=== PATIENT | male | born 1990 | race Caucasian/White ===

== ENCOUNTER 2022-03-31 23:14 | Emergency (ER) | payer MEDICAID, SELFPAY ==
[2022-03-31 23:15] VITALS: BP 139/92; PULSE 95; RESP 16; TEMP 36.3; O2SAT 99; BMI 22.1
--- NOTE | 2022-03-31 23:18 | RAD_ITS ---
STUDY: X-RAY - LEFT SHOULDER REASON FOR EXAM: Male, 31 years old. dislocation TECHNIQUE: 2 view(s) of the shoulder. COMPARISON: None. FINDINGS: Please see the impression. RAD/Shoulder min 2 Views IMPRESSION: Anterior subcoracoid dislocation of the left humeral head. A small Hill-Sachs defect. No definite acute fracture in the left shoulder. Electronically Signed: Mendoza Rouse MD at 1:02 EDT ,
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
[2022-03-31 23:33] LABS: Absolute Lymphocyte Count 1.54 X10^3/uL (0.83-4.51); Absolute Neutrophil Count 6.8 X10^3/uL (2.0-7.7); Basophil# 0.05 X10^3/uL; Basophil% 0.5 % (0-1); Eosinophil# 0.06 X10^3/uL; Eosinophils% 0.7 % (0-5); Hematocrit 44.9 % (40-54); Hemoglobin 15.3 g/dL (13.0-16.5); Lymphocyte # 1.54 X10^3/ul (0.83-4.51); Lymphocyte % 16.7 % (19-41); Mean Corp Hgb Conc 34.1 g/dL (32-36); Mean Corpuscular Hgb 31.8 pg (27.0-32.0); Mean Corpuscular Volume 93.3 fL (80-94); Mean Platelet Vol. 10.9 fl (6.2-12.0); Monocyte# 0.67 X10^3/uL; Monocyte% 7.3 % (0-10); NRBC Flagged by Analyzer 0 % (0-5); Neutrophil # 6.83 X10^3/uL (2.7-7.7); Neutrophil % 74.1 % (47-70); Platelet Count 189 K/mm3 (150-450); RBC Distribution Width CV 12.9 % (11.6-14.6); RBC Distribution Width SD 44.2 fl (35.1-43.9); Red Blood Count 4.81 M/mm3 (4.6-6.2); White Blood Count 9.2 K/mm3 (4.4-11.0)
[2022-03-31] MEDS: Morphine 4 MG/ML Syringe IV (23:38)
[2022-03-31] MEDS: Ondansetron 4 MG/2 ML Vial IV (23:39)
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
[2022-04-01 00:02] LABS: ALB/GLOB Ratio 1.4 RATIO (0.9-2.4); AST(SGOT) 33 U/L (15-37); Alanine Aminotransfer ALT/SGPT 30 U/L (16-61); Albumin, Serum 4.2 g/dL (3.2-5.0); Alkaline Phosphatase 44 U/L (45-117); Anion Gap 8 (5-15); BUN 15 mg/dL (7-18); BUN/Creat Ratio 11.1 RATIO (10-20); Calcium,Total 8.9 mg/dL (8.5-10.1); Chloride 108 mmol/L (98-107); Creatinine, Serum 1.35 mg/dL (0.70-1.30); EST Glomerular Filtration Rate 65 mL/min (>60); Est Glom Filt Rate - Afr Amer 78 mL/min (>60); Globulin 3.1 g/dL (2.2-4.2); Glucose 105 mg/dL (74-106); Potassium 4.2 mmol/L (3.5-5.1); Protein, Total 7.3 g/dL (6.4-8.2); Sodium Level 142 mmol/L (136-145)
[2022-04-01 00:08] VITALS: BP 148/86; PULSE 75; RESP 14; O2SAT 100
[2022-04-01 00:09] VITALS: BP 138/100; BP 148/86; PULSE 80; PULSE 84; RESP 14; RESP 21; O2SAT 100
--- NOTE | 2022-04-01 00:16 | RAD_ITS ---
STUDY: X-RAY - LEFT SHOULDER REASON FOR EXAM: Male, 31 years old. reduction TECHNIQUE: 2 view(s) of the shoulder. COMPARISON: 03/31/2022 FINDINGS: Interval reduction of the left glenohumeral joint. Bones in anatomic alignment. Hill-Sachs defect. Electronically Signed: Mendoza Rouse MD at 2:53 EDT , RAD/Shoulder min 2 Views IMPRESSION: undefined
[2022-04-01 00:17] VITALS: BP 153/98; O2SAT 100
[2022-04-01] MEDS: Etomidate 20 MG/10 ML Vial 10 MG IV (00:20)
--- NOTE | 2022-04-01 00:41 | ED.RN ---
ATTEMPTED TO CALL PTS [facility] – [place]- [phone]
[2022-04-01 00:46] VITALS: BP 124/81; PULSE 85; RESP 16; O2SAT 97
[2022-04-01] MEDS: Diphth,Pertuss(Acell),Tet Vac 0.5 ML Vial IM (01:55)
[2022-04-01 02:00] VITALS: RESP 16
[2022-04-01 08:55] VITALS: BP 141/96; PULSE 72; RESP 14; O2SAT 98
== END 2022-04-01 08:58 | disposition home or self-care (01) ==
PROVIDERS: Emergency Provider Emergency Medicine; Visit Provider Emergency Medicine
DX: S43.015A Anterior dislocation of left humerus, initial encounter (principal); S01.111A Laceration without foreign body of right eyelid and periocular area, initial encounter; V40.5XXA Car driver injured in collision with pedestrian or animal in traffic accident, initial encounter; S80.212A Abrasion, left knee, initial encounter; F17.210 Nicotine dependence, cigarettes, uncomplicated; Z23 Encounter for immunization
CPT/HCPCS: 23650; 12011; 70450; 73030; 80053; 85025; 90471; 90715; 96374; 96375; 99285; J7030; A4216; J2405